=== PATIENT | male | born 1990 | race Caucasian/White ===

== ENCOUNTER 2021-08-17 02:27 | Emergency (ER) | payer OTHER, SELFPAY ==
[2021-08-17 02:34] VITALS: BP 138/91; PULSE 97; RESP 18; TEMP 37; O2SAT 98; BMI 27.1
--- NOTE | 2021-08-17 02:45 | XRR_ITS ---
PROCEDURE INFORMATION: Exam: XR Left Knee Exam date and time: 08/17/2021 3:08 AM Age: 31 years old Clinical indication: Pain and injury or trauma; Other: Running and heard a pop; Work related; Swelling (edema); Knee; Left; Additional info: L knee injury TECHNIQUE: Imaging protocol: XR Left knee. Views: 3 views. COMPARISON: No relevant prior studies available. FINDINGS: Bones/joints: No acute fracture or dislocation. Soft tissues: Normal. Other findings: There are changes of prior [place]-Sch[place]atter's disease. XR/XR knee LT 3V* [id number] IMPRESSION: No acute fracture or dislocation.
--- NOTE | 2021-08-17 03:03 | W.ED.EXTPRO ---
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 He currently has left knee pain, swelling. Localizes pain mainly to the lateral joint line and under the kneecap. He has had previous knee injury to that knee, but never any surgery MD Complaint: extremity pain Onset (ago): hour(s) Pain Consistency: constant Location: left and knee Quality: aching Radiation: none Relieving factors: cold therapy Exacerbating factors: range of motion and weight bearing Associated symptoms: Deny fever(s) or short of breath Review of Systems Const: Denies: fever(s) Resp: Denies: dyspnea Musc: Denies: neck pain Physical Exam Const: GENERAL APPEARANCE: cooperative; not ill appearing ORIENTATION/CONSCIOUSNESS: Yes awake, Yes oriented to person, Yes oriented to place and Yes oriented to time HENMT: COMMON NORMALS: normocephalic HEAD & SCALP: normocephalic FACE & SINUS: normal facial exam Eye: COMMON NORMALS: Equal, round and reactive pupils present and EOMs intact bilaterally PUPIL: Yes Equal, round and reactive pupils present Chest: CHEST: Yes Symmetrical chest wall rise Resp: COMMON NORMALS: normal respiratory effort and No use of accessory muscles Cardio: COMMON NORMALS: regular rate and regular rhythm RATE: regular rate RHYTHM: regular rhythm Extremity: NARRATIVE EXTREMITY EXAM: Examination of the left knee reveals near full extension. There is pain with limited range of motion. He is tender in the lateral joint line, and anterior along his patellar tendon. Ligamentous testing is negative for varus and valgus testing. Kia is negative. PCL testing is guarded. There is a small effusion. Neuro: VIVEK COMA SCALE: document GCS findings Vivek coma scale eye opening: Spontaneous Vivek coma scale verbal response: Orientated [place] coma scale motor response: Obey commands Vivek coma scale total score: 15 SENSORIUM/ORIENTATION: Yes oriented to person, Yes oriented to place and Yes oriented to time Course Vital Signs: Vital signs: Vital Signs Temperature 98.6 F 08/17/21 02:34 Pulse Rate 97 08/17/21 02:34 Respiratory Rate 18 08/17/21 02:34 Blood Pressure 138/91 08/17/21 02:34 Pulse Oximetry 98 08/17/21 02:34 MDM - Extremity (Nontraumatic) Medical Decision Making Knee x-ray reveals a knee effusion present. There appears to be an avulsion of the tibial tuberosity involving the patellar tendon. This is age-indeterminate, as it appears to be somewhat well-corticated, but this is where the patient is most tender he did fall directly on the knee, so it makes sense. He is placed in a knee immobilizer and crutches. We will have case management make him a follow-up appointment with orthopedics. Discharge Plan Discharge Patient Disposition: Home Clinical Impression: Effusion of left knee, Avulsion fracture of tibial tuberosity Condition: Stable Prescriptions: New hydrocodone-acetaminophen 5-325 mg tablet 1 tab PO Q8H PRN (Reason: pain) Qty: 7 0RF ketorolac 10 mg tablet 10 mg PO TID PRN (Reason: pain) Qty: 10 0RF Discharge Orders: Discharge ED (Routine); Ordered 08/17/21 Ordered By: George Vazquez Discharge Diet: Usual diet Discharge Activity: Limit activity as instructed Patient Instructions: Swollen Knee Joint (ED), Knee Pain (ED), Opioid Safety Activity Restrictions/Additional Instructions: Alternate pain medications as needed for pain. Ice frequently for swelling and pain. Stay in the knee immobilizer while up. You may begin to bear weight as long as you are in the knee immobilizer. Case management will make you an appointment with orthopedics this coming week. You should get a call from them at the beginning of the week. Return for worsening pain despite treatment, worsening swelling despite treatment, redness, streaking, other concerning symptoms. Stand Alone Forms: Work/School Release Coding Level of Care Code ED [employer] Fwd Exam Detailed
--- NOTE | 2021-08-17 05:16 | PC.NURSE ---
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
--- NOTE | 2021-08-18 13:29 | DCPLANNER ---
Addendum entered by Arabella Camacho 08/29/21 08:28: Patient had a follow up appointment scheduled for 08.22.21 with ortho - patient did attend appointment. Addendum entered by Arabella Camacho 08/21/21 18:25: Patient has a follow up appointment scheduled for Sunday, August 22, [address] at 9:[address] Palmer at ortho. Clinic will call patient with appointment information. Original Note: manager mobility had message to schedule a follow up appointment for patient with ortho. manager mobility sent patients information to the front office staff at ortho. Patients information will be printed and reviewed. Clinic will call patient with appointment information.
== END 2021-08-17 05:18 | disposition home or self-care (01) ==
PROVIDERS: Emergency Provider Emergency Medicine
DX: S82.152A Displaced fracture of left tibial tuberosity, initial encounter for closed fracture (principal); M25.462 Effusion, left knee; W01.0XXA Fall on same level from slipping, tripping and stumbling without subsequent striking against object, initial encounter
CPT/HCPCS: 73562; 99283